=== PATIENT | female | born 1980 | race Two or more races ===

== ENCOUNTER → 2018-03-28 | Emergency (ER) | payer BC, OTHER ==
[2018-03-28 13:25] VITALS: BMI 29.8
--- NOTE | 2018-03-28 16:43 | US ---
Date of service: 03/28/2018 PROCEDURE: Ultrasound OB limited: Modified biophysical profile HISTORY: BPP/VITALIY COMPARISON: None TECHNIQUE: Limited obstructed transabdominal ultrasound was performed. FINDINGS: There is a single live intrauterine fetus in cephalic presentation. heart rate is 139 BPM. Placenta is anterior. Cervix is not well visualized. The amniotic fluid index is normal and measures 11.59 cm. biophysical profile scoring: breathing movements: 2 movements: 2 tones: 2 Amniotic Fluid: 2 Total score: 8 IMPRESSION: Single live intrauterine fetus in cephalic presentation. Amniotic fluid index is normal and measures 11.59 cm. bowel physical profile score is 8.
== END | disposition home or self-care (01) ==
LOC: H.EROB2 13:02
DX: O36.8130 Decreased fetal movements, third trimester, not applicable or unspecified (principal); Z87.59 Personal history of other complications of pregnancy, childbirth and the puerperium; O47.1 False labor at or after 37 completed weeks of gestation; Z3A.39 39 weeks gestation of pregnancy

== ENCOUNTER 2018-04-05 00:26 | Inpatient (IN) | payer BC ==
[2018-04-05 01:29] VITALS: BMI 30.5
[2018-04-05] MEDS ORDERED: Lactated Ringer's 1,000 ML IV ONE (02:03)
[2018-04-05 02:52] LABS: BASO % 0.4 % (0.0-2.0); EOS # 0.1 K/uL (0.0-0.7); EOS % 1.2 % (0.0-4.0); HEMOGLOBIN 11.3 g/dL (12.0-16.0); MEAN CORPUSCULAR HEMOGLOBIN 27.7 pg (27.0-31.0); MEAN CORPUSCULAR HGB CONC 33.8 g/dL (33.0-37.0); MEAN PLATELET VOLUME 10.2 fl (7.2-11.7); MONO # 0.8 K/uL (0.0-0.8); MONO % 8.6 % (0.0-10.0); NEUT # 5.9 K/uL (1.8-7.0); NEUT % 66.8 % (50.0-75.0); RBC 4.07 Mil/uL (3.80-5.20); RED CELL DISTRIBUTION WIDTH 14.2 % (11.5-14.5); WHITE BLOOD COUNT 8.8 K/uL (4.8-10.8)
--- NOTE | 2018-04-05 05:14 | OBPN ---
Datetime: 04/05/2018 02:50 IP Informed Consent Obtain: Section Delivery; Risks, Benefits and Alternatives Discussed IP Progress Plan: Deliver- Section IP Progress Note Comment: Informed consent obtained Datetime: 04/05/2018 02:01 Membranes, Provider: Intact Contraction Comments Provider: Regular Q 8mins FHR - Baseline A Provider: 130 Vital Signs Provider: Reviewed; Within Normal Limits NICHD Accel Fetus A IP Provider: [id number] FHR Category Provider Fetus A: Category I NICHD Variability Prov Fetus A: Moderate 6-25bpm NICHD Decel Fetus A IP Provider: None Datetime: 03/28/2018 13:30 Pool Provider: Negative
[2018-04-05] MEDS ORDERED: OXYTOCIN/0.9 % NS 20 UNIT/1,000 ML BAG IV ONE (05:18)
[2018-04-05] MEDS ORDERED: Oxytocin 30 UNITS in Sodium Chloride 0.9% 500 ML IV ONE (05:22)
[2018-04-05] MEDS ORDERED: OXYTOCIN/0.9 % NS 20 UNIT/1,000 ML BAG IV SCH (05:30)
[2018-04-05] MEDS ORDERED: Morphine 1 mg/ml preservative-free Inj(Duramorph) ONE (06:01)
[2018-04-05] MEDS ORDERED: cefOXitin 2 GM in Sodium Chloride 0.9% 100 ML IVPB ONE (06:03)
[2018-04-05] MEDS ORDERED: DiphenhydrAMINE 50 mg/ml Inj IVP PRN (07:18)
[2018-04-05] MEDS ORDERED: Oxycodone/Acetaminophen 5/325 mg Tab PO PRN ×2 (07:18→22:29)
[2018-04-06] MEDS ORDERED: DiphenhydrAMINE 50 mg/ml Inj IVP PRN (05:55)
[2018-04-06] MEDS ORDERED: Oxycodone/Acetaminophen 5/325 mg Tab PO PRN ×2 (05:55)
[2018-04-06 08:03] LABS: HEMOGLOBIN 10.4 g/dL (12.0-16.0); MEAN CELL VOLUME 80.9 fl (81.0-99.0); MEAN CORPUSCULAR HEMOGLOBIN 27.8 pg (27.0-31.0); MEAN CORPUSCULAR HGB CONC 34.3 g/dL (33.0-37.0); RBC 3.75 Mil/uL (3.80-5.20); RED CELL DISTRIBUTION WIDTH 14.2 % (11.5-14.5)
--- NOTE | 2018-04-06 08:24 | OP ---
PROCEDURE DATE: 04/05/2018 PREOPERATIVE DIAGNOSES: Intrauterine at 40 weeks gestation, previous section x1, declining vaginal after section, and oligohydramnios. POSTOPERATIVE DIAGNOSES: Intrauterine at 40 weeks gestation, previous section x1, declining vaginal after section, and oligohydramnios. Small uterine fibroids noted throughout the uterus. PROCEDURE: Repeat low transverse section via previous Pfannenstiel incision. SURGEON: Juan Carlos Joshua DO [facility] ROLLER: Poncho Koch MD (Dr. Poncho Koch is a board certified [employer] physician who happened to be available for this procedure. His presence was vital and necessary. There was no available to assist on this case). ANESTHESIOLOGIST: Freddie Flores DO ANESTHESIA: Spinal. OPERATIVE FINDINGS: A live was delivered from cephalic presentation, thin meconium noted. Placenta was delivered intact spontaneously. scores of 9 and 9 given at one and five minutes respectively. Ovaries and tubes appeared to be within normal limits grossly. Small tiny fibroids were noted throughout the uterus. All equipments, sponges, and needle counts were accounted for. She remained hemodynamically stable throughout the procedure. ESTIMATED BLOOD LOSS: 800 mL. DESCRIPTION OF PROCEDURE: The patient was brought to the operating room. After successful spinal anesthesia by Dr. Flores, she was placed in a supine position. Compression boots were placed on both lower extremities. Catheter was used to drain the bladder with contents. She was then draped and prepped in the usual sterile manner. Once adequate anesthesia was obtained, an incision was made using a scalpel. Previous surgical scar was removed. The incision was then taken down to the underlying fascia using electrocautery. The fascia was nicked in the midline and extended bilaterally using electrocautery. Inferior aspect of the fascia was grasped using two Andres clamps, tented up, and the rectus muscle was both bluntly and sharply dissected using electrocautery. The same was done with the superior aspect of the fascia and then midline superiorly. The rectus muscle was grasped using two Allis clamps, tented up. This was carefully incised using a scalpel. Upon identifying the peritoneum, this was tented up using two Lisa clamps and incised using Metzenbaum scissors. The incision was then extended superiorly and inferiorly with direct visualization of bladder and intestines. Some adhesions were noted along the left anterior abdominal wall. This was taken down using Lisa clamps and free ties. Hemostasis being ensured. A bladder blade was then inserted. A bladder flap was created by incising peritoneum on the uterus using Metzenbaum scissors and then extended bilaterally. A very thin lower uterine segment was then noted to be able to visualize the infant's head. Decision was made to incise above this area using scalpel. First, the incision was made upon entering the uterus. The incision was then extended bilaterally using bandage scissors. Rupture of membranes was performed using forceps with teeth. Thin meconium noted upon rupture. The infant's head was delivered atraumatically as possible. Infant was bulb suctioned nasopharyngeally. The infant was then delivered atraumatically as possible. Gentle suction was done. The patient was able to visualize out the delivery. Cord was clamped and cut. Infant was handed to the cardiovascular physician assistant in attendance. Cord bloods were obtained. Placenta was delivered intact spontaneously. Uterus was then exteriorized. IV Pitocin was given. A 0 Vicryl suture was used to close the first layer of the uterus in an interlocking fashion. Second layer of the uterus was closed using 0 Vicryl suture imbricating the first layer. Good hemostasis was assured. Ovaries and tubes appeared to be within normal limits grossly. Small tiny fibroids were noted to be on the serosa both anteriorly and posteriorly. Uterus was placed back into the peritoneal cavity. Lap pads were placed on the paracolic gutters. Irrigation was performed. Lower uterine segment was noted to have good hemostasis. All equipments were removed and accounted for. A 0 Vicryl suture was used to approximate the peritoneum in a running fashion. The rectus muscle was noted to have good hemostasis and approximated using 0 Vicryl suture x3. Hemostasis being assured. A 0 Vicryl suture was then used to approximate the fascial layer in a running fashion. Irrigation was performed. Hemostasis was assured using electrocautery. A 2-0 plain suture was then used to approximate the subcuticular layer x3. A 3-0 Vicryl suture was used to approximate the skin. Dermabond, Steri-Strips, and pressure bandages were applied. She tolerated the procedure well and transferred to the recovery room in stable condition. Juan Carlos Joshua DO [facility] # [id number]
--- NOTE | 2018-04-07 01:13 | OBPPN ---
Datetime: 04/06/2018 13:10 PP Pain Prov: Within normal limits PP Nausea Prov: Denies PP Flatus Prov: Yes PP Breasts Prov: Normal PP Heart Prov: Normal PP Lungs Prov: Normal PP Abdomen/Uterus Prov: Normal PP Lochia Prov: Normal PP Vulva/Perineum Prov: Normal PP CVA Tenderness Prov: Normal PP Extremities Prov: Normal PP Comments Phys Exam Prov: Abdomen soft, nontender, nondistended Uterus firm, below umbilicus Incision clean, dry, intact No deep Tenderness bilaterally PP Progress Note Prov: Postoperative #2 status post , patient recovering well Pain control Ambulation Regular diet Anticipate discharge home tomorrow Vital Signs Provider PP: Reviewed; Within Normal Limits
--- NOTE | 2018-04-07 09:05 | OBDS ---
DELIVERY PERSONNEL Delivery Doctor: Steve Joshua DO Scrub Nurse: Yuliya Herrera A R Collections Rep: Brandy Dye RN/ Brandy Means Anesthesiologist: Susan Flores MD MATERNAL INFORMATION Delivery Anesthesia: Spinal Medications in Delivery: Pitocin Estimated Blood Loss (ml): 800 Placenta Cultured: No Maternal Complications: None Provider Comments: Pre Op Dx : IUP 39w/previous C/S x 1 decelined /Oligohydramnios Post opDx same; small fibroids Procedure: Repeat LTCS via previous Pfannenstiel incision Surgeon: Dr Josiane Koch Anest: Dr Freddie Flores Anesth: spinal Findings: -Live delivered from [facility] presentation -thin meconium -Placenta delivered intact spontaneously - 9,9 -Ovaries and fallopian tubes WNL grossly -small fiboirds noted arond uterus -All equipment sponges and needles accounted for -She remained stable -EBL 800cc LABOR SUMMARY EDC: 03/30/2018 00:00 No. Babies in Womb: 1 Attempted: No Labor Anesthesia: Intrathecal LABOR INFORMATION Reason for Induction: Not Applicable Oxytocin: N/A Group B Beta Strep: Positive Group B Beta Strep: Positive Steroids Given: None Reason Steroids Not Administered: Not Applicable MEMBRANES Membranes Rupture Method: Artificial Rupture of Membranes: 04/05/2018 06:36 Length of Rupture (hrs): 0.02 Amniotic Fluid Color: Light Meconium Amniotic Fluid Amount: Small Amniotic Fluid Odor: None STAGES OF LABOR Stage 3 hrs: 0 Stage 3 min: 1 CSECTION DELIVERY Primary Indication: Other Other Primary Indication: previous C/s declined Other Secondary Indication: Oligohydramnios CSection Urgency: Non Elective CSection Incidence: Repeat Labor: No Labor Elective: Nonelective CSection Incision: Lower Uterine Transverse BABY A INFORMATION Infant Delivery Date/Time: 04/05/2018 06:37 Method of Delivery: Born in Route : No : N/A Forceps: N/A Vacuum Extraction: N/A Shoulder Dystocia : No SHOULDER DYSTOCIA BABY A Delivery Date/Time: 04/05/2018 06:37 PRESENTATION/POSITION BABY A Presentation: Cephalic Cephalic Presentation: Vertex Breech Presentation: N/A PLACENTA INFORMATION BABY A Placenta Delivery Time : 04/05/2018 06:38 Placenta Method of Delivery: Spontaneous Placenta Status: Delivered SCORES BABY A Heart Rate 1 min: >100 bpm Resp Effort 1 min: Good Cry Reflex Irritability 1 min: Cough or Sneeze or Pulls Away Muscle Tone 1 min: Active Motion Color 1 min: Body [place], Extremities Blue Resuscitation Effort 1 min: Tactile Stimulation SCORE 1 MIN: 9 Heart Rate 5 min: >100 bpm Resp Effort 5 min: Good Cry Reflex Irritability 5 min: Cough or Sneeze or Pulls Away Muscle Tone 5 min: Active Motion Color 5 min: Body [place], Extremities Blue Resuscitation Effort 5 min: N/A SCORE 5 MIN: 9 INFANT INFORMATION BABY A Gestational Age at Delivery: 40.6 Gestational Status: Term Infant Outcome : Liveborn Condition : Stable Infant Sex: Female IDENTIFICATION/MEDS BABY A ID Band Number: [id number] ID Band Location: Left Leg; Left Arm WEIGHT/LENGTH BABY A Infant Birthweight (gms): 3980 Weight (lb): 8 Weight (oz): 12 CORD INFORMATION BABY A No. Cord Vessels: 3 Nuchal Cord : N/A Nuchal Cord Other: 0 True Knot: 0 Infant Cord pH Baby Arterial: N/A Infant Cord pH Baby Venous: N/A Cord Blood Taken: Yes Banking/Donate Info: N/A Suction: Mouth; Nose ASSESSMENT BABY A Complications: Oligohydramnios Physical Findings at Delivery: Within Normal Limits Infant Respirations: Appears Normal Catering Driver/ALS Called : No Care By: Dr Juancarlos Bonds RN Transferred To: Nursery
--- NOTE | 2018-04-07 09:07 | OBDS ---
DELIVERY PERSONNEL Delivery Doctor: Steve Joshua DO Scrub Nurse: Yuliya Herrera Medical Office Representative: Brandy Dye RN/ Brandy Means Anesthesiologist: Susan Flores MD MATERNAL INFORMATION Delivery Anesthesia: Spinal Medications in Delivery: Pitocin Estimated Blood Loss (ml): 800 Placenta Cultured: No Maternal Complications: None Provider Comments: Pre Op Dx : IUP 39w/previous C/S x 1 decelined /Oligohydramnios Post opDx same; small fibroids Procedure: Repeat LTCS via previous Pfannenstiel incision Surgeon: Dr Josiane Koch Anest: Dr Freddie Flores Anesth: spinal Findings: -Live delivered from [facility] presentation -thin meconium -Placenta delivered intact spontaneously - 9,9 -Ovaries and fallopian tubes WNL grossly -small fiboirds noted arond uterus -All equipment sponges and needles accounted for -She remained stable -EBL 800cc LABOR SUMMARY EDC: 03/30/2018 00:00 No. Babies in Womb: 1 Attempted: No Labor Anesthesia: Intrathecal LABOR INFORMATION Reason for Induction: Not Applicable Oxytocin: N/A Group B Beta Strep: Positive Steroids Given: None Reason Steroids Not Administered: Not Applicable MEMBRANES Membranes Rupture Method: Artificial Rupture of Membranes: 04/05/2018 06:36 Length of Rupture (hrs): 0.02 Amniotic Fluid Color: Light Meconium Amniotic Fluid Amount: Small Amniotic Fluid Odor: None STAGES OF LABOR Stage 3 hrs: 0 Stage 3 min: 1 CSECTION DELIVERY Primary Indication: Other Other Primary Indication: previous C/s declined Other Secondary Indication: Oligohydramnios CSection Urgency: Non Elective CSection Incidence: Repeat Labor: No Labor Elective: Nonelective CSection Incision: Lower Uterine Transverse BABY A INFORMATION Infant Delivery Date/Time: 04/05/2018 06:37 Method of Delivery: Born in Route : No : N/A Forceps: N/A Vacuum Extraction: N/A Shoulder Dystocia : No SHOULDER DYSTOCIA BABY A Delivery Date/Time: 04/05/2018 06:37 PRESENTATION/POSITION BABY A Presentation: Cephalic Cephalic Presentation: Vertex Breech Presentation: N/A PLACENTA INFORMATION BABY A Placenta Delivery Time : 04/05/2018 06:38 Placenta Method of Delivery: Spontaneous Placenta Status: Delivered SCORES BABY A Heart Rate 1 min: >100 bpm Resp Effort 1 min: Good Cry Reflex Irritability 1 min: Cough or Sneeze or Pulls Away Muscle Tone 1 min: Active Motion Color 1 min: Body [place], Extremities Blue Resuscitation Effort 1 min: Tactile Stimulation SCORE 1 MIN: 9 Heart Rate 5 min: >100 bpm Resp Effort 5 min: Good Cry Reflex Irritability 5 min: Cough or Sneeze or Pulls Away Muscle Tone 5 min: Active Motion Color 5 min: Body Kyle, Extremities Blue Resuscitation Effort 5 min: N/A SCORE 5 MIN: 9 INFORMATION BABY A Gestational Age at Delivery: 40.6 Gestational Status: Term Outcome : Liveborn Condition : Stable Sex: Female IDENTIFICATION/MEDS BABY A ID Band Number: [id number] ID Band Location: Left Leg; Left Arm WEIGHT/LENGTH BABY A Birthweight (gms): 3980 Infant Weight (lb): 8 Infant Weight (oz): 12 CORD INFORMATION BABY A No. Cord Vessels: 3 Nuchal Cord : N/A Nuchal Cord Other: 0 True Knot: 0 Cord pH Baby Arterial: N/A Infant Cord pH Baby Venous: N/A Cord Blood Taken: Yes Banking/Donate Info: N/A Suction: Mouth; Nose ASSESSMENT BABY A Infant Complications: Oligohydramnios Physical Findings at Delivery: Within Normal Limits Infant Respirations: Appears Normal [employer]roleum [employer] Worker/ALS Called : No Care By: Dr Juancarlos Bonds RN Transferred To: [facility]
--- NOTE | 2018-04-08 10:38 | OBPPN ---
Datetime: 04/08/2018 10:34 PP Pain Prov: Within normal limits PP Nausea Prov: Denies PP Flatus Prov: Yes PP Breasts Prov: Normal PP Heart Prov: Normal PP Lungs Prov: Normal PP Abdomen/Uterus Prov: Normal PP Lochia Prov: Normal PP Vulva/Perineum Prov: Normal PP CVA Tenderness Prov: Normal PP Extremities Prov: Normal PP Comments Phys Exam Prov: Abd: Soft, NT, BS- present UT- Firm Incision: Clean and dry PP Impression Prov: Normal progression PP Plan Prov: Discharge PP Progress Note Prov: S/P Uncomplicated Delivery, POD #3 Clinically Stable. Plan: D/c Home F/U with Dr Joshua. Vital Signs Provider PP: Reviewed Datetime: 04/07/2018 08:54 PP BM Prov: Yes PP C/S Incision Prov: Normal PP Progress Prov: Normal
--- NOTE | 2018-04-08 10:41 | OBDCSUM ---
Datetime: 04/08/2018 10:04 Discharged to, Provider: Home Follow up at, Provider: Dr Joshua Disch Instr Activity: Normal activity; May be up to bathroom; May be up for meals; May Shower Disch Instr Diet: Regular Discharge Instructions, Provider: Routine instructions given Discharge Diagnosis, Provider: Term Delivered Discharge Time: 04/08/2018 10:05 Follow up in weeks, Provider: 1-2 weeks incision check 6 weeks vaginal check up Disch Referrals: None Contraception discussed, Prov: Yes Disch Activity Restrictions: Minimize stair-climbing; No sexual activity; Nothing in vagina - Interc ourse, tampons, douche Discharge Comment, Provider: S/P Uncomplicated Delivery, Clinically Stable. Discharge Diagnosis Prov Other: S/P Uncomplicated Delivery, Clinically Stable.
[2018-04-08 19:22] VITALS: BP 113/78; PULSE 75; RESP 18; TEMP 97.7; O2SAT 99
== END 2018-04-08 13:17 | disposition home or self-care (01) | DRG 765 ==
LOC: H.EROB2 00:26 → H.L&D 00:50 → H.OB/GYN 10:59
PROVIDERS: ADMIT Obstetrics & Gynecology; ATTEND Obstetrics & Gynecology
PROC: 10D00Z1 Extraction of Products of Conception, Low, Open Approach (ICD-10-PCS; principal; 2018-04-05)
PROC: 4A1HXCZ Monitoring of Products of Conception, Cardiac Rate, External Approach (ICD-10-PCS; 2018-04-05)
DX: O34.211 Maternal care for low transverse scar from previous cesarean delivery (principal); O41.03X0 Oligohydramnios, third trimester, not applicable or unspecified; O48.0 Post-term pregnancy; O77.0 Labor and delivery complicated by meconium in amniotic fluid; O34.13 Maternal care for benign tumor of corpus uteri, third trimester; D25.9 Leiomyoma of uterus, unspecified; Z37.0 Single live birth; Z3A.40 40 weeks gestation of pregnancy